=== PATIENT | male | born 1965 | race American Indian/Alaskan Native ===

== ENCOUNTER 2016-10-20 12:14 | Emergency (ER) | payer SELFPAY ==
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
[2016-10-20 20:07] VITALS: BP 139/88
== END 2016-10-20 20:09 | disposition home or self-care (01) ==
LOC: ED 12:14
DX: R20.0 Anesthesia of skin (principal); M25.541 Pain in joints of right hand; K29.70 Gastritis, unspecified, without bleeding
CPT/HCPCS: 99282